=== PATIENT | female | born 2000 | race American Indian/Alaskan Native ===

== ENCOUNTER 2021-03-10 07:32 | Emergency (ER) | payer SELFPAY ==
[2021-03-10] MEDS ORDERED: ONDANSETRON 4 MG/2 ML INJ IV ONE (08:42)
[2021-03-10] MEDS ORDERED: SODIUM CHLORIDE 0.9% 1000 ML 1,000 ML IV ONE ×3 (08:42→10:03)
--- NOTE | 2021-03-10 08:46 | Emergency Department Report ---
ED N/V/D HPI - General Chief complaint: Nausea/Vomiting/Diarrhea Stated complaint: VOMIT, CHILLS, SWEAT ( THINK COVID) Time Seen by Provider: 03/10/21 08:41 Source: patient Mode of arrival: Ambulatory Limitations: No Limitations - History of Present Illness Initial comments: 20-year-old -[place] female presents to the emergency room complaining of chills nausea vomiting since 4 AM. Patient states that she has diarrhea and abdominal pain located in the middle of her stomach. She does admit that she smokes weed every day. She did does admit that she has been exposed to Covid but has not been vaccinated has not been tested. She denies any chest pain no shortness of breath no sore throat no nasal congestion or headache. She is 1 para 1 with a last menstrual period of 03/06/2021. She states that she is followed by [facility]. MD complaint: nausea, vomiting, diarrhea, abdominal pain -: This morning Time: 04:00 Description of Vomiting: bilious Description of Diarrhea: water Associated Abdominal Pain: Yes Location: diffuse Radiation: none Pain Scale: 4 Quality: cramping Consistency: constant Improves with: none Worsens with: none Context: sick contacts, other (Cannabis abuser) Associated Symptoms: nausea/vomiting. denies: cough, diaphoresis, fever/chills, shortness of breath, syncope - Related Data Previous Rx's Medication Instructions Recorded Last Taken Type Doxycycline Hyclate [Doxycycline 100 mg PO Q12HR 10 Days #20 tab 03/10/21 Unknown Rx Hyclate TAB] traMADoL [Ultram 50 MG tab] 50 mg PO Q6HR PRN #12 tablet 03/10/21 Unknown Rx Allergies Allergy/AdvReac Type Severity Reaction Status Date / Time No Known Allergies Allergy Verified 03/10/21 10:13 ED Review of Systems ROS: Stated complaint: VOMIT, CHILLS, SWEAT ( THINK COVID) Other details as noted in HPI Comment: All other systems reviewed and negative ED Past Medical Hx - Medications Home Medications: Home Medications Medication Instructions Recorded Confirmed Last Taken Type Doxycycline Hyclate [Doxycycline 100 mg PO Q12HR 10 Days #20 tab 03/10/21 Unknown Rx Hyclate TAB] traMADoL [Ultram 50 MG tab] 50 mg PO Q6HR PRN #12 tablet 03/10/21 Unknown Rx ED Physical Exam - General Limitations: No Limitations General appearance: alert - Head Head exam: Present: atraumatic, normocephalic - Eye Eye exam: Present: normal appearance, PERRL - ENT ENT exam: Present: mucous membranes dry, normal external ear exam - Neck Neck exam: Present: normal inspection, full ROM - Respiratory Respiratory exam: Present: normal lung sounds bilaterally. Absent: respiratory distress, accessory muscle use - Cardiovascular Cardiovascular Exam: Present: regular rate, normal rhythm. Absent: systolic murmur, diastolic murmur, rubs, gallop - GI/Abdominal GI/Abdominal exam: Present: soft, normal bowel sounds. Absent: distended, tenderness - Extremities Exam Extremities exam: Present: normal inspection - Back Exam Back exam: Present: normal inspection, full ROM - Neurological Exam Neurological exam: Present: alert, oriented X3, normal gait - Psychiatric Psychiatric exam: Present: normal affect, normal mood - Skin Skin exam: Present: warm, dry, intact, normal color. Absent: rash ED Course Vital Signs 03/10/21 08:01 Temperature 97.7 F Pulse Rate 57 L Respiratory 20 Rate Blood Pressure 112/81 [Right] O2 Sat by Pulse 100 Oximetry ED Medical Decision Making - Lab Data Result diagrams: 03/10/21 09:01 03/10/21 09:01 - Medical Decision Making 20-year-old -[place] female presents to the emergency room complaining of chills nausea vomiting since 4 AM. Patient states that she has diarrhea and abdominal pain located in the middle of her stomach. She does admit that she smokes weed every day. She did does admit that she has been exposed to Covid but has not been vaccinated has not been tested. She denies any chest pain no shortness of breath no sore throat no nasal congestion or headache. She is gra ramy 1 para 1 with a last menstrual period of 03/06/2021. She states that she is followed by [facility]. CBC, CMP, lipase urinalysis, serum hCG, IV, IV normal saline and IV Zofran. Critical care attestation.: If time is entered above; I have spent that time in minutes in the direct care of this critically ill patient, excluding procedure time. ED Disposition Clinical Impression: UTI (urinary tract infection), Suspected COVID-19 virus infection Disposition: HOME / SELF CARE / HOMELESS Is pt being admited?: No Does the pt Need Aspirin: No Condition: Stable Instructions: Urinary Tract Infection, Adult, [id number] Additional Instructions: You are being treated for urinary tract infection. Medication also treat gonorrhea and chlamydia. Medication also treat upper respiratory infection. I do recommend that she get Covid tested. And consider getting Covid vaccinated after having a negative Covid test. Is very important to increase your water intake advance your diet as tolerated. That means you need to be drinking at least 3 to 4 L of water daily. Be sure to void after intercourse. Tylenol ibuprofen or tramadol as needed for pain. Do not operate heavy machinery while taking tramadol. Very important you follow-up with your [facility]. Prescriptions: Doxycycline Hyclate [Doxycycline Hyclate TAB] 100 mg PO Q12HR 10 Days #20 tab traMADoL [Ultram 50 MG tab] 50 mg PO Q6HR PRN #12 tablet PRN Reason: Pain Referrals: [facility] [Primary Care Provider] - 3-5 Days [facility] [Provider Group] - 3-5 Days Forms: Work/School Release Form(ED) Time of Disposition: 11:26
[2021-03-10 09:24] LABS: Basophils # (Auto) 0.1 K/mm3 (0.0-0.1); Basophils % (Auto) 0.6 % (0.0-1.8); Eosinophils % (Auto) 0.2 % (0.0-4.3); Hematocrit 40.7 % (30.3-42.9); Hemoglobin 13.2 gm/dl (10.1-14.3); Lymphocytes # (Auto) 0.8 K/mm3 (1.2-5.4); Mean Corpuscular HGB Conc 33 % (30-34); Mean Corpuscular Volume 93 fl (79-97); Monocytes # (Auto) 0.1 K/mm3 (0.0-0.8); Monocytes % (Auto) 0.8 % (0.0-7.3); Platelet Count 145 K/mm3 (140-440); Red Cell Distribution Width 13.4 % (13.2-15.2)
[2021-03-10 09:41] LABS: Alanine Aminotransferase 9 units/L (7-56); Albumin 3.9 g/dL (3.9-5); BUN/Creatinine Ratio 8; Blood Urea Nitrogen 6 mg/dL (7-17); Hemolysis Index 17
[2021-03-10] MEDS ORDERED: diphenhydrAMINE 50 MG/ML VIAL IV ONE (10:02)
[2021-03-10] MEDS ORDERED: MORPHINE 2 MG/1 ML INJ IV ONE (10:02)
[2021-03-10 10:05] LABS: Bilirubin,Urine NEG (Negative); Blood,Urine LG (Negative); Color,Urine Red (Yellow); Mucus,Urine 3+ /HPF; Urobilinogen,Urine < 2.0 mg/dL (<2.0)
[2021-03-10 10:06] LABS: RBC,Urine > 182.0 /HPF (0.0-6.0); WBC,Urine > 182.0 /HPF (0.0-6.0)
[2021-03-10] MEDS ORDERED: ONDANSETRON 4 MG ODT TAB PO ONE (16:21)
[2021-03-10 16:30] VITALS: BP 113/68
== END 2021-03-10 16:30 | disposition home or self-care (01) ==
LOC: ED 07:32
DX: N39.0 Urinary tract infection, site not specified (principal); Z20.822 Contact with and (suspected) exposure to COVID-19; R19.7 Diarrhea, unspecified; Z79.899 Other long term (current) drug therapy
CPT/HCPCS: 36415; 80053; 81001; 83690; 84702; 85025; 96361; 96365; 96375; 99283; J0696; J1200; J2270; J2405; J7030; J3490; Q0162